=== PATIENT | male | born 1965 | race Two or more races ===

== ENCOUNTER 2025-06-11 10:30 | Emergency (ER) | payer MEDICAID, OTHER ==
[~2025-06-11] VITALS: Ht 167.6 cm; Wt 76.0 kg
[2025-06-11 12:15] VITALS: TEMP 98.3
--- NOTE | 2025-06-11 12:26 | ED.PDOC ---
HPI (NEURO) HPI Comments 59-year-old male presents here for medication refill. While he was talking to our nurse practitioner Elena he began to have an active seizure. I was called immediately to bedside to assess the patient. Patient has a known history of epilepsy since age 16. He has been taking Keppra 750 mg b.i.d. for several years. Patient is acutely postictal and confused. Answers few questions only. History is limited at this time. But he does state he has been asked a few days of his Keppra. Chief Complaint: Seizure Time Seen by MD: 12:20 Reviewed Notes: Nurses Notes, Medications, Allergies Information Source: Patient Mode of Arrival: Ambulatory Severity: Moderate Headache Severity: None Timing: Minutes Duration: Since onset, Minutes Prehospital treatment: None Seizure Quality: Single Episodes Seizure Location: Generalized Onset: With light exertion Circumstances: Recent stress Symptoms: None Before: Normal During: LOC After: Confusion History of: Seizure Disorder Associated Signs and Symptoms: None Past Medical History PAST MEDICAL HISTORY: Seizures Past Medical History (Other): Epilepsy Surgical History: Denies all surgeries Family History Family History: Reviewed,noncontributory to illness, Unknown Social History Smoker: Non-Smoker Alcohol: Denies ETOH Use Drugs: Denies Drug Use Lives In: Home Constitutional: denies: chills, diaphoresis, fatigue, fever, malaise, sweats, weakness, others EENTM: denies: blurred vision, double vision, ear bleeding, ear discharge, ear drainage, ear pain, ear ringing, eye pain, eye redness, hearing loss, mouth pain, mouth swelling, nasal discharge, nose bleeding, nose congestion, nose pain, photophobia, tearing, throat pain, throat swelling, voice changes, others Respiratory: denies: cough, hemoptysis, orthopnea, SOB at rest, shortness of breath, SOB with excertion, stridor, wheezing, others Cardiovascular: denies: chest pain, dizzy spells, diaphoresis, Dyspnea on exertion, edema, irregular heart beat, left arm pain, lightheadedness, palpitations, PND, syncope, others Gastrointestinal: denies: abdomen distended, abdominal pain, blood streaked bowels, constipated, diarrhea, dysphagia, difficulty swallowing, hematemesis, melena, nausea, poor appetite, poor fluid intake, rectal bleeding, rectal pain, vomiting, others Genitourinary: denies: burning, dysuria, flank pain, frequency, hematuria, inco ntinence, penile discharge, penile sore, pain, testicle pain, testicle swelling, urgency, others Neurological: reports: seizure; denies: dizziness, fainting, headache, left sided numbness, left sided weakness, numbness, paresthesia, pre-existing deficit, right sided numbness, right sided weakness, speech problems, tingling, tremors, weakness, others Musculoskeletal: denies: back pain, gout, joint pain, joint swelling, muscle pain, muscle stiffness, neck pain, others Integumetry: denies: bruises, change in color, change in hair/nails, dryness, laceration, lesions, lumps, rash, wounds, others Allergic/Immunocompromised: denies: Difficulty Healing, Frequent Infections, Hives, Itching, others Hematologic/Lymphatic: denies: anemia, blood clots, easy bleeding, easy bruising, swollen glands, others Endocrine: denies: excessive hunger, excessive sweating, excessive thirst, excessive urination, flushing, intolerance to cold, intolerance to heat, unexplained weight gain, unexplained weight loss, others Psychiatric: denies: anxiety, bipolar disorder, depression, hopeless, panic disorder, schizophrenia, sleepless, suicidal, others Unable to Obtain due to: Altered Mental Status Physical Exam General Appearance: Moderate Distress, Other (Actively seizing in chair, pale diaphoretic) HEENT: Normal ENT Inspection Neck: Normal Inspection Respiratory: No Respiratory Distress, Normal Breath Sounds Cardiovascular: Tachycardia Breast Exam: Deferred Gastrointestinal: Non Tender Genitalia: Deferred Pelvic: Other Rectal: Other Extremities: Normal range of motion Neurologic: Seizure, Other (Actively seizing) Cerebellar Function: NOT DONE Reflexes: NOT DONE Skin: Other (Pale diaphoretic) Lymphatic: NOT DONE Was a procedure done? Was a procedure done?: No Differential Diagnosis (SZ) Seizure: Other (STRESS INDUCED SZ) CVA: Other (Electrolyte disturbance, medication noncompliance, alcohol withdrawal, drug ingestion closed head injury, stroke) General Weakness: N/A Headache: N/A X-Ray, Labs, Meds, VS Vital Signs Date Time Temp Pulse Resp B/P (MAP) Pulse Ox O2 Delivery O2 Flow Rate FiO2 06/11/25 10:45 98.7 80 12 132/89 97 98.7 Lab Test 06/11/25 13:21 Range/Units White Blood Count 4.6 4.4-10.8 10^3/uL Red Blood Count 4.04 L 4.5-5.90 10^6/uL Hemoglobin 13.3 L 13.5-17.5 g/dL Hematocrit 39.8 L 41.0-53.0 % Mean Corpuscular Volume 98.6 80.0-100.0 fL Mean Corpuscular Hemoglobin 33.0 H 28.0-32.0 pg Mean Corpuscular Hemoglobin Concent 33.5 32.0-36.0 g/dL Red Cell Distribution Width 13.5 11.8-14.3 % Platelet Count 226 140-450 10^3/uL Mean Platelet Volume 8.4 6.9-10.8 fL Neutrophils (%) (Auto) 50.3 37.0-80.0 % Lymphocytes (%) (Auto) 38.9 10.0-50.0 % Monocytes (%) (Auto) 9.8 0.0-12.0 % Eosinophils (%) (Auto) 0.6 0.0-7.0 % Basophils (%) (Auto) 0.4 0.0-2.0 % Neutrophils # (Auto) 2.3 1.6-8.6 10 ^3/uL Lymphocytes # (Auto) 1.8 0.4-5.4 10 ^3/uL Monocytes # (Auto) 0.4 0-1.3 10 ^3/uL Eosinophils # (Auto) 0 0-0.8 10 ^3/uL Basophils # (Auto) 0 0-0.2 10 ^3/uL Nucleated Red Blood Cells 0.0 % Sodium Level 143 136-145 mmol/L Potassium Level 3.9 3.5-5.1 mmol/L Chloride Level 107 98-107 mmol/L Carbon Dioxide Level 26 20-31 mmol/L Anion Gap 10 5-15 Blood Urea Nitrogen 23 9-23 mg/dL Creatinine 0.98 0.700-1.30 mg/dL Glomerular Filtration Rate Calc 90 >90 mL/min BUN/Creatinine Ratio 23.5 H 10.0-20.0 Serum Glucose 88 74-106 mg/dL Calcium Level 9.1 8.7-10.4 mg/dL Current Medications Medications (Trade) Dose Ordered Sig/Glenys Route Start Time Stop Time Status Last Admin Levetiracetam 100 ml @ 400 mls/hr ONCE ONCE IV 06/11/25 12:45 06/11/25 12:59 DC 06/11/25 13:23 59-year-old male presents here status post seizure. This was a witnessed seizure by myself. He was speaking to her nurse practitioner when he began to actively seize. Patient has a known history of epilepsy and currently takes Keppra 750 b.i.d.. However he does state he has been noncompliant for several days. History however is limited. Patient was postictal after his initial seizure that I witnessed. He is pale and diaphoretic. He is awake but able to answer few questions only. At this time CBC BMP urinalysis has been ordered. I have started the patient on Keppra IV. Patient did not hit his head as this was a witnessed seizure in the ER. CBC BMP have returned within normal limits. Patient has been given his Keppra IV. At this time on re-evaluation at 2:40 p.m. he is awake alert no acute distress able to answer all questions. He states he lives in her [place] and every time he tries to make a doctor's appointment he is always late and they end up rescheduling him until a month later. At this time I will be discharging him home with Keppra 750 b.i.d.. Advised him follow up with his PCP and neurologist and return to the ER if symptoms worsen or persist for he states he normally does not get seizures only if he misses doses. Time of 1ST Reevaluation: 12:50 Reevaluation 1ST: Unchanged Time of 2ND Reevaluation: 14:43 Reevaluation 2ND: Improved Patient Education/Counseling: Diagnosis, Treatment, Prognosis Family Education/Counseling: No Family Present Departure 1 Departure Time of Disposition: 14:40 Impression: Primary Impression: Seizure Disposition: 01 HOME / SELF CARE / HOMELESS Condition: Fair e-Prescriptions Levetiracetam (Levetiracetam) 750 Mg Tab 750 MG PO BID for 30 Days, #60 TAB Prov: JULIANA DOCKERY MD 06/11/25 Critical Care Note Critical Care Time?: Yes (45 min-critical care time only) Critical care comment: Patient immediately assessed by myself. Multiple re-evaluations due to his acute postictal state. Concern for immediate neurological deterioration. Stability Stability form required: No Heart Score Heart Score: Heart Score Response (Comments) Value History N/A 0 EKG N/A 0 Age 45-64 1 Risk Factors N/A 0 Troponin N/A 0 Total 1 I personally scribed for JULIANA DOCKERY MD ([email or web address]) on 06/11/25 at 12:26. Electronically submitted by Lorenzo Hansen ([email or web address]). JULIANA DOCKERY MD Jun 11, 2025 12:26
[2025-06-11 12:30] VITALS: PULSE 103; RESP 16; O2SAT 98
[2025-06-11] MEDS: levETIRAcetam 1000 mg/100ml 100 ML IV ONE (13:23)
[2025-06-11 13:37] LABS: Hematocrit 39.8 % (41.0-53.0); Hemoglobin 13.3 g/dL (13.5-17.5); Mean Corpuscular Hemoglobin 33.0 pg (28.0-32.0); Mean Corpuscular Volume 98.6 fL (80.0-100.0); Nucleated Red Blood Cells % 0.0 %
[2025-06-11 13:49] LABS: Potassium 3.9 mmol/L (3.5-5.1); Sodium 143 mmol/L (136-145)
[2025-06-11 13:50] LABS: Anion Gap 10 (5-15); Carbon Dioxide 26 mmol/L (20-31)
[2025-06-11 13:51] LABS: Calcium 9.1 mg/dL (8.7-10.4)
[2025-06-11 13:53] LABS: Chloride 107 mmol/L (98-107)
[2025-06-11 13:56] LABS: BUN/Creatinine Ratio 23.5 (10.0-20.0); Glucose 88 mg/dL (74-106)
[2025-06-11 14:00] VITALS: BP 105/69; PULSE 62; RESP 16; O2SAT 95
[2025-06-11 14:00] LABS: Blood Urea Nitrogen 23 mg/dL (9-23)
[2025-06-11] MEDS ORDERED: LEVE750T3 PO (14:42)
== END 2025-06-11 15:15 | disposition home or self-care (01) ==
LOC: ER 10:30
DX: G40.909 Epilepsy, unspecified, not intractable, without status epilepticus (principal); Z76.0 Encounter for issue of repeat prescription
CPT/HCPCS: 36415; 80048; 85025; 96374; 99283; J1953